=== PATIENT | male | born 1995 | race Caucasian/White ===

== ENCOUNTER 2017-04-18 18:42 | Emergency (ER) | payer BC, MEDICAID ==
[~2017-04-18] VITALS: Ht 185.4 cm; Wt 72.6 kg
[2017-04-18 18:50] VITALS: BP 103/54; PULSE 80; RESP 18; TEMP 98.1; O2SAT 98
--- NOTE | 2017-04-18 18:50 | NUR ---
Arrived via [facility] for ALOC. Patient is presumed to have had seizure due to post-ictal behavior and past seizure Hx. Vomting on arrival to ED. Placed in room 5 . Placed on bus driver/monitor, blood pressure machine and pulse oximeter. To gown for exam. Side rails up.
--- NOTE | 2017-04-18 19:10 | NUR ---
Note undone in EDM - 04/19/17 at 0417 by CASIMIRO Pt came in by [facility] for seizures. Pt is AAOx4. Pt does not remember seizure. Pt has hx of seizures. Pt is resting comfortably. Pt has hematoma of the L orbital area with bruising. Will contine to monitor. No other injuries or complaints mentioned/noted. No distress noted.
--- NOTE | 2017-04-18 19:10 | NUR ---
ER Dr. Palacio at bedside examining patient.
--- NOTE | 2017-04-18 19:10 | NUR ---
Pt came in by [facility] for seizures. Pt is AAOx4. Pt does not remember seizure. Pt has hx of seizures. Pt is resting comfortably. Pt has hematoma of the L orbital area with bruising. Will continue to monitor. No other injuries or complaints mentioned/noted. No distress noted.
[2017-04-18 19:26] LABS: BASOPHILS % (AUTO) 0.5 % (0.0-2.0); EOSINOPHILS # (AUTO) 0.2 K/uL (0.0-0.4); EOSINOPHILS % (AUTO) 1.9 % (0.0-4.0); HEMATOCRIT 43.6 % (36-54); HEMOGLOBIN 14.4 g/dL (14.0-18.0); LYMPHOCYTES # (AUTO) 1.2 K/uL (1.0-5.5); LYMPHOCYTES % (AUTO) 14.9 % (20.5-51.5); MEAN CORPUSCULAR HEMOGLOBIN 29 pg (27-31); MEAN CORPUSCULAR HGB CONC 33 % (32-36); MEAN CORPUSCULAR VOLUME 87 fL (79.0-98.0); MONOCYTES # (AUTO) 0.6 K/uL (0.0-1.0); MONOCYTES % (AUTO) 6.6 % (1.7-9.3); NEUTROPHILS # (AUTO) 6.4 K/uL (1.8-7.7); NEUTROPHILS % (AUTO) 76.1 % (40.0-70.0); PLATELET COUNT (AUTO) 243 K/uL (130-430); RED BLOOD CELL COUNT(AUTO) 4.99 MIL/uL (4.2-6.2); RED CELL DISTRIBUTION WIDTH 14.2 % (9.0-15.0); WHITE BLOOD COUNT (AUTO) 8.4 K/uL (4.8-10.8)
[2017-04-18 19:58] LABS: CREATININE 1.11 mg/dL (0.55-1.30); POTASSIUM 3.9 mmol/L (3.5-5.1)
[2017-04-18 20:14] LABS: PROTHROMBIN TIME 10.9 SECS (9.5-12.5)
[2017-04-18] MEDS ORDERED: levETIRAcetam 1,000 MG IV BAG 100 ML IV ONE (21:00)
[2017-04-18 21:15] LABS: BILIRUBIN,URINE NEGATIVE (NEGATIVE); CLARITY/URINE CLEAR (CLEAR); COLOR,URINE YELLOW (YELLOW); GLUCOSE,URINE NEGATIVE (NEGATIVE); KETONES,URINE NEGATIVE (NEGATIVE); LEUKOCYTE ESTERASE ,URINE NEGATIVE (NEGATIVE); NITRITE, URINE NEGATIVE (NEGATIVE); PROTEIN URINE NEGATIVE (NEGATIVE); UROBILINOGEN,URINE 0.2 (0.2-1.0)
[2017-04-18 21:24] LABS: BLOOD, URINE TRACE (NEGATIVE)
[2017-04-18 21:28] LABS: BACTERIA,URINE FEW /HPF (None Seen); RBC,URINE 0-3 /HPF (0-3); WBC,URINE 0-3 /HPF (0-3)
[2017-04-18 21:29] LABS: MUCUS,URINE 1+ /LPF (None Seen)
[2017-04-18 21:41] LABS: CANNABINOID, URINE POSITIVE (NEG <=50); URINE OXYCODONE SCREEN POSITIVE (NEG <=100)
--- NOTE | 2017-04-18 21:41 | NUR ---
No ADR. Will continue to monitor.
[2017-04-18 21:42] LABS: BARBITURATE, URINE NEGATIVE (NEG <=200); BENZODIAZEPINE, URINE NEGATIVE (NEG <=150); COCAINE, URINE NEGATIVE (NEG <=150); METHAMPHETAMINES SCREEN,URINE NEGATIVE (NEG <=500); OPIATE, URINE NEGATIVE (NEG <=100); PHENCYCLIDINE SCREEN,URINE NEGATIVE (NEG <=25); UR TRICYCLIC ANTIDEPRESSANTS NEGATIVE (NEG <=300); URINE AMPHETAMINE NEGATIVE (NEG <=500); URINE METHADONE NEGATIVE (NEG <=200); URINE PROPOXYPHENE SCREEN NEGATIVE (NEG <=300)
--- NOTE | 2017-04-18 22:15 | NUR ---
Patient given written and verbal discharge instructions and verbalizes understanding. ER MD discussed with patient the results and treatment provided. Patient in stable condition. ID arm band removed. IV catheter removed intact and dressing applied, no active bleeding. Rx of Keppra given. Patient educated on pain management and to follow up with PMD. Pain Scale 0/10. Opportunity for questions provided and answered.
[2017-04-18 22:25] VITALS: BP 104/50; PULSE 60; RESP 18; TEMP 98.1; O2SAT 98
== END 2017-04-18 22:15 | disposition home or self-care (01) ==
LOC: SED 18:42
DX: R56.9 Unspecified convulsions (principal)
CPT/HCPCS: 36415; 80048; 80307; 81000; 85025; 85610; 85730; 96365; 99284; G0482; J1953 ×2